=== PATIENT | female | born 1945 | race Caucasian/White ===

== ENCOUNTER 2017-02-18 09:41 | Emergency (ER) | payer MEDICARE, OTHER ==
[~2017-02-18 09:41] MED LIST: BACITRACIN OIN EXT; BACTRIM DS TAB1 EACH PO; BACTROBAN NASAL1 GM NS; CALCIUM 600 +1 EAC8 PO; CELEXA10 MG PO; CHILDRENS CHEWA81 MG PO; DOXYCYCLINE HY100 M2 PO; GLUCOPHAGE500 MG PO; LISINOPRIL5 MG PO; LOVASTATIN20 MG PO; NICODERM 14MG PA1 EA TD; NORVASC5 MG PO; OMEPRAZOLE20 M1 PO; RESTORIL7.5 MG PO
== END 2017-02-18 11:42 | disposition home or self-care (01) ==
LOC: ER 09:41
DX: H66.91 Otitis media, unspecified, right ear (principal); J02.9 Acute pharyngitis, unspecified; F17.210 Nicotine dependence, cigarettes, uncomplicated; Z79.899 Other long term (current) drug therapy; Z79.82 Long term (current) use of aspirin; Z79.84 Long term (current) use of oral hypoglycemic drugs
CPT/HCPCS: 87070; 87880; 99283